=== PATIENT | male | born 1965 | race Hispanic/Latino ===

== ENCOUNTER 2016-12-16 07:28 | Day surgery (SDC) | payer OTHER ==
[2016-12-13 10:54] VITALS: BMI 26.5
[2016-12-16 08:03] LABS: ADD MANUAL DIFF? NO
[2016-12-16 08:07] LABS: BASO # 0.03 K/mm3 (0.0-2.0); BASO % 0.6 % (0.0-3.0); EOS # 0.1 (0.0-0.7); EOS % 2.5 % (1.5-5.0); GRAN # 2.43 (1.4-6.5); GRAN % 50.9 % (50.0-68.0); LYMPH # 1.9 (1.2-3.4); LYMPH % 39.3 % (22.0-35.0); MEAN CELL VOLUME 88.4 fL (80.0-105.0); MEAN CORPUSCULAR HEMOGLOBIN 29.3 pg (25.0-35.0); MEAN CORPUSCULAR HGB CONC 33.2 g/dl (31.0-37.0); MEAN PLATELET VOLUME 9.8 fl (7.0-11.0); MONO # 0.3 (0.1-0.6); MONO % 6.7 % (1.0-6.0); PLATELET COUNT 282 10^3/uL (120.0-450.0); RED CELL DISTRIBUTION WIDTH 13.2 % (11.5-14.5); WHITE BLOOD COUNT 4.8 10^3/ul (4.5-11.0)
[2016-12-16 08:23] LABS: ALB/GLOB RATIO 1.5 (1.1-1.8); ALKALINE PHOSPHATASE 48 U/L (38-133); ALT/SGPT 38 U/L (7-56); AST/SGOT 36 U/L (15-59); BILIRUBIN,TOTAL 0.3 mg/dL (0.2-1.3); BLOOD UREA NITROGEN 16 mg/dL (7-21); CARBON DIOXIDE 26 mmol/L (21-33); CHLORIDE 105 mmol/L (95-110); GFR AFRICAN-AMERICAN > 60; GLUCOSE,RANDOM 88 mg/dL (70-110); POTASSIUM 4.2 mmol/L (3.6-5.0); SODIUM 141 mmol/L (132-148); TOTAL PROTEIN 7.4 g/dL (5.8-8.3)
[2016-12-16] MEDS ORDERED: Lidocaine 1% Inj (20ml) ONE (08:28)
[2016-12-16] MEDS ORDERED: Bupivacaine 0.5% Inj(30mL) ONE (08:28)
[2016-12-16 08:35] LABS: CALCIUM 8.9 mg/dL (8.4-10.5)
[2016-12-16] MEDS ORDERED: Midazolam 2 MG/2 ML VIAL ONE (08:35)
[2016-12-16] MEDS ORDERED: Propofol 10 mg/ml Inj (20 ML) ONE (08:35)
--- NOTE | 2016-12-16 09:51 | PCM.SURG1 ---
Surgeon's Initial Post Op Note - Surgeon's Notes Surgeon: Dr. Briscoe Engineering Secretary: Dr. Tolbert Type of Anesthesia: IV Sedation, Local Pre-Operative Diagnosis: right medial forearm mass, retained foreign body in right index finger Operative Findings: metal fragment, right index finger. fatty mass from right medial forearm Post-Operative Diagnosis: same Operation Performed: excision of ventral right index finger foreign body, excision of medial right forearm intramuscular mass Specimen/Specimens Removed: soft tissue mass, metalic foreign body Estimated Blood Loss: EBL {In ML}: 5 Blood Products Given: N/A Drains Used: No Drains Post-Op Condition: Good Date of Surgery/Procedure: 12/16/16 Time of Surgery/Procedure: 09:51
[2016-12-16] MEDS ORDERED: Sodium Chloride 0.9% 1,000 ML IV SCH (10:00)
[2016-12-16 11:15] VITALS: RESP 18; TEMP 98.3
[2016-12-16 11:49] VITALS: BP 117/63; PULSE 58; O2SAT 98
--- NOTE | 2016-12-17 08:34 | OP ---
PROCEDURE DATE: 12/16/2016 PREOPERATIVE DIAGNOSES: 1. Right forearm mass. 2. Right index finger foreign body. POSTOPERATIVE DIAGNOSES: 1. Right index finger foreign bodyin flexor tendon. 2. Deep intramuscular fatty mass of the right forearm. SURGEON: Dr. Briscoe BUILDING CERTIFIER: Dr. Tolbert ANESTHESIOLOGIST: Dr. Rivera ANESTHESIA: IV sedation and local anesthetic. SPECIMENS: 1. Foreign body of the right index finger. 2. Deep intramuscular lipoma measuring 5.2 cm x 3 cm of the right forearm. ESTIMATED BLOOD LOSS: Minimal. The patient is a 51-year-old male with a history of a previous mass on the right forearm, which was associated with discomfort and increasing in size over the past few months. The patient also had a foreign body impacted in the base of the right index finger associated with tenderness for the past couple of months. The patient requested to have those removed. The patient was brought to the operating room and placed on the operating table in a supine position. The patient was connected to EKG, blood pressure and pulse oximeter monitors. The patient then underwent MAC anesthesia and was prepped and draped in usual sterile fashion. First, sound standard timeout procedure took place and everybody in the room agreed to the patient's identity, diagnosis and procedure to be performed. Using lidocaine mixed with Marcaine, the area of the foreign body location was infiltrated and a transverse incision was made in order to expose the foreign body. This was carefully dissected out and it appeared that underneath the fatty tissue of the index finger there was a metallic chip which represented the foreign body and was lodged within the flexor tendon of the index finger. This was carefully dissected out in order to avoid injury to the tendon and sent as a specimen. The wound was copiously irrigated and closed using 3-0 Vicryl and 5-0 nylon for closure of the skin. A sterile Dermabond dressing was applied to this wound. Next, our attention was turned to the right forearm mass where a transverse incision was made directly overlying the mass. Careful dissection was done in order to push the overlying cephalic vein branch and cutaneous nerve branch and carefully expose the mass. The mass was lodged into the muscle layer underneath it and had to be carefully teased out from within the muscle itself. Once this dissection took place and the mass was removed measuring 5.2 cm x 3 cm, I then proceeded with reapproximation of the layers using 3-0 Vicryl for both muscle and then proceeded with reapproximating the skin using 3-0 Vicryl and 4-0 Monocryl, and 4-0 Monocryl was used in order to close the skin. A sterile Dermabond dressing was applied to the wound. The patient tolerated the procedure well and there was no complication. The patient was awakened and transferred to the recovery room. Carlos Briscoe MD cc: [id number] TT: 12/16/2016 10:30:44 en [id number]
== END 2016-12-16 11:50 | disposition home or self-care (01) ==
LOC: SDS 07:28
PROVIDERS: ATTEND General Practice
DX: D17.21 Benign lipomatous neoplasm of skin and subcutaneous tissue of right arm (principal); M79.5 Residual foreign body in soft tissue
CPT/HCPCS: 10120; 25071; 36415; 80053; 85025; 88300; 88307; J0690; J1885 ×2; J2250; J2405; J2704; J3010; J7030; J7040; J7120